=== PATIENT | male | born 1975 | race Caucasian/White ===

== ENCOUNTER 2020-12-17 08:07 | Outpatient (CLI) | payer OTHER, SELFPAY ==
--- NOTE | ~2020-12-17 | XR_ITS ---
EXAMINATION: XR barium swallow modified EXAM DATE: 12/17/2020 09:16 INDICATION: R13.10 - Dysphagia, unspecified TECHNIQUE: Modified barium esophagram was performed by speech pathologist with radiologist Dr. Inder Ward present to administered fluoroscopy. Speech pathologist administered barium in varying consis tencies as per speech pathologist documentation. This was recorded on tape. There was total fluorosc opic time of 0.8 minutes. The DAP for this procedure was 0.6 Gycm2. A total of 1 images sent to PAC S from the exam. FINDINGS: Oral stage: Adequate function. Pharyngeal phase: Adequate function. Laryngeal sensitivity: Present. IMPRESSION: Oral feedings recommended as per speech pathologist. Reviewed, dictated and finalized at location A.
--- NOTE | 2020-12-17 16:51 | STOPEVAL ---
MODIFIED BARIUM SWALLOW EVALUATION: Thank you for referring Boogie Ndiaye to [facility].? Attending Provider: Vic Carranza PA-C/Dr Gulshan ARREGUIN [phone] Modified Barium Swallow Evaluation Recent Swallowing History Reports Dysphagia Yes: meat & sometimes other foods get stuck Onset of Dysphagia about a year ago History of Dysphagia No Other Related History pt denied any significant medical history Other Factors Impacting Dysphagia None History of Pneumonia No Reported Difficult Consistencies Solids Intake Method Prior to Swallow Oral Evaluation Diet Prior to Swallow Evaluation Regular, Level 7 Liquid Consistency Prior to Swallow Thin (0) Evaluation Consistency Solid Consistency Method of Presentation Spoon Oral Preparatory Symptoms None Oral Phase Symptoms None Pharyngeal Phase Symptoms None Severity of Vallecular Residue None - 0% No Residue Severity of Pyriform Sinus Residue None - 0% No Residue 8 Point Laryngeal Penetration-Aspiration Material Does Not Enter Airway Scale Cervical/Esophageal Symptoms None Mixed Consistency Method of Presentation Spoon Oral Preparatory Symptoms None Oral Phase Symptoms None Pharyngeal Phase Symptoms None Severity of Vallecular Residue None - 0% No Residue Severity of Pyriform Sinus Residue None - 0% No Residue 8 Point Laryngeal Penetration-Aspiration Material Does Not Enter Airway Scale Cervical/Esophageal Symptoms None Pureed Consistency Method of Presentation Spoon Oral Preparatory Symptoms None Oral Phase Symptoms None Pharyngeal Phase Symptoms None Severity of Vallecular Residue None - 0% No Residue Severity of Pyriform Sinus Residue None - 0% No Residue 8 Point Laryngeal Penetration-Aspiration Material Does Not Enter Airway Scale Cervical/Esophageal Symptoms None Thin Uncontrolled 2 Method of Presentation Straw Oral Preparatory Symptoms None Oral Phase Symptoms None Pharyngeal Phase Symptoms None Severity of Vallecular Residue None - 0% No Residue Severity of Pyriform Sinus Residue None - 0% No Residue 8 Point Laryngeal Penetration-Aspiration Material Does Not Enter Airway Scale Cervical/Esophageal Symptoms None Thin Uncontrolled 1 Method of Presentation Cup Oral Preparatory Symptoms None Oral Phase Symptoms None Pharyngeal Phase Symptoms None Severity of Vallecular Residue None - 0% No Residue Severity of Pyriform Sinus Residue None - 0% No Residue 8 Point Laryngeal Penetration-Aspiration Material Does Not Enter Airway Scale Cervical/Esophageal Symptoms No
== END 2020-12-17 08:08 | disposition home or self-care (01) ==
PROVIDERS: PCP Physician Assistant; Visit Provider Physician Assistant
DX: R13.10 Dysphagia, unspecified (principal)
CPT/HCPCS: 92611

== ENCOUNTER 2020-12-31 09:15 | Outpatient (CLI) | payer OTHER, SELFPAY | END 2020-12-31 09:16 | disposition home or self-care (01) | LOC: ANHAUDIO 09:17 | PROVIDERS: PCP Physician Assistant; Visit Provider Physician Assistant | DX: H90.3 Sensorineural hearing loss, bilateral (principal) | CPT/HCPCS: 92557; 92567 ==

== ENCOUNTER 2021-11-11 08:01 | Emergency (ER) | payer OTHER, SELFPAY ==
--- NOTE | ~2021-11-11 | XR_ITS ---
EXAMINATION: XR ribs RT 2V w CXR 2V INDICATION: Chest pain TECHNIQUE: PA and lateral views of the chest and 3 views of the left ribs were obtained. COMPARISON: 09/17/2015 FINDINGS: The lungs are free of acute opacities. No pleural effusion or pneumothorax. The cardiomedia stinal silhouette is normal. The visualized bones and soft tissues are unremarkable. No displaced ri b fracture is identified. IMPRESSION: 1. No acute cardiopulmonary abnormality or evidence of displaced rib fracture. Reviewed, dictated and finalized at location A.
[2021-11-11 08:11] VITALS: BP 140/104; PULSE 73; RESP 14; O2SAT 99
[2021-11-11] MEDS: HYDROcodone/acetaminophen (*CRX) 5-325 MG TABLET 1 TAB PO (08:26)
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
== END 2021-11-11 09:50 | disposition home or self-care (01) ==
PROVIDERS: Emergency Provider Emergency Medicine; PCP Physician Assistant
DX: R07.89 Other chest pain (principal); F17.210 Nicotine dependence, cigarettes, uncomplicated
CPT/HCPCS: 71046; 71100; 99283; A9270

== ENCOUNTER 2022-09-03 12:37 | Outpatient (CLI) | payer BC, SELFPAY ==
--- NOTE | ~2022-09-03 | CT_ITS ---
EXAMINATION: CT chest abdomen pelvis w con DATE: 09/03/2022 13:05 INDICATION: Abnormal weight loss TECHNIQUE: Computed tomography (CT) of the chest, abdomen, and pelvis was performed with 100 CC Omnip aque 350 intravenous contrast. Automated exposure control and iterative reconstruction technique were employed. Exam dose: 509.04 mGy-cm total exam DLP. COMPARISON: 11/11/2021 PA and lateral chest FINDINGS: CHEST CT: Normal heart size. No pericardial or pleural effusion. Normal size and homogeneous enhancement of the thyroid gland. No hilar or mediastinal mass lesion or lymphadenopathy. No thoracic aortic aneurysm or dissection. Mild to moderate sliding hiatal hernia. Mild bilateral gynecomastia. ABDOMEN/PELVIS CT: The liver, gallbladder, bile ducts, pancreas, pancreatic duct and spleen appear normal. No renal mass lesion or scarring or urinary tract calculus or hydroureteronephrosis is detected. The urinary bladder and prostate gland are unremarkable. Normal caliber of the abdominal aorta. No intraperitoneal or retroperitoneal or pelvic mass lesion or adenopathy or ascites. No bowel obstruction, bowel wall thickening, pneumatosis or intraperitoneal free air is detected. Nor mal appendix. There is some nonspecific fluid-containing small bowel segments with air-fluid levels. Severe degenerative disease at L5-S1. Moderate degenerative disease and mild retrolisthesis at L3-4. Moderate degenerative disease at L2-3, L4-5. T12 limbus vertebra or old anterior inferior T12 vertebral body fracture deformity. IMPRESSION: Nonspecific nondilated fluid containing small bowel with air-fluid levels which may be d ue to enteritis or mild adynamic ileus Mild to moderate sliding hiatal hernia Normal appendix Reviewed, dictated and finalized at Location A. Reviewed, dictated and finalized at location L. IMPRESSION: Nonspecific nondilated fluid containing small bowel with air-fluid levels which may be due to enteritis or mild adynamic ileus Mild to moderate sliding hiatal hernia Normal appendix
== END 2022-09-03 12:38 | disposition home or self-care (01) ==
PROVIDERS: PCP Physician Assistant; Visit Provider Physician Assistant
DX: R63.4 Abnormal weight loss (principal); K44.9 Diaphragmatic hernia without obstruction or gangrene
CPT/HCPCS: 71260; 74177; Q9967

== ENCOUNTER 2022-09-25 01:39 | Day surgery (SDC) | payer BC, SELFPAY ==
[2022-09-16 12:12] VITALS: BMI 19.6
[2022-09-25 07:55] VITALS: BP 129/95; PULSE 77; RESP 18; TEMP 36.6; O2SAT 99
[2022-09-25] MEDS: LACTATED RINGERS 1,000 ML 150 ML IV CONT (07:57)
--- NOTE | 2022-09-25 08:38 | PM.HPGS ---
History of Present Illness History of Present Illness Consent: Risks, benefits, and alternatives have been discussed and questions answered. Patient agrees to proceed with procedure. Chief complaint: dysphagia, neoplasm screening Narrative: Boogie Ndiaye is a 47 year old male with weight loss, smoker, also noted that sometimes food will get stuck in upper chest never had scopes CT scan no major findings. Review of Systems Constitutional: Constitutional: Denies headache(s) and Denies weakness Eyes: Eyes: Denies blurry vision ENT: Reports Normal hearing present, Denies headache(s) and Denies neck pain Cardiovascular: Cardiovascular: Denies chest pain and Denies dyspnea Respiratory: Respiratory: Denies dyspnea Gastrointestinal: Gastrointestinal: Reports no additional gastrointestinal complaints Genitourinary: Genitourinary: Denies dysuria Musculoskeletal: Musculoskeletal: Denies neck pain Integumentary/Breasts: Skin/Breast: Denies dry skin Neurologic: Reports Normal hearing present, Denies headache(s) and Denies weakness Psychiatric: Psychiatric: Denies anxiety Endocrine: Endocrine: Denies change in body appearance Hematologic/Lymphatic: Hematologic/Lymphatic: Denies easy bleeding Allergic/Immunologic: Allergic/Immunologic: Denies urticaria PMF Past Medical History Medical History (Updated 09/25/22 @ 08:39 by James Krause MD) Dysphagia Healthy adult male Surgical History Surgical History Hx of tonsillectomy Family History Family History Father Patient's father is in good health Mother Family history of malignant neoplasm of uterus Patient's mother is Social History Social History Smoking packs per day: 2 Smoking cigarettes per day: 40.0 Years smoked: 20 Smoking pack-years: 40.00 Smoking status: Current every day smoker Tobacco type: cigarettes Second hand tobacco smoke exposure: No Alcohol intake: current Drinks per week: 45 Alcohol use details: BEER Substance use: current Substance use type: marijuana Lack of Transportation: No Lack of Food: Never True Current Housing: I Have Housing Concerned About Future Housing: No Difficulty Paying Gas/Electric Bills: No Difficulty Paying for Meds: No Currently Unemployed: No Education: High School Diploma/GED Difficulty w/ Childcare or Family Care: No Living arrangements: with family Spiritual care concerns: No Meds Home Medications and Allergies Home Medications Medication Instructions Recorded Confirmed Type citalopram 40 mg tablet 40 mg PO DAILY 09/25/22 09/25/22 History Allergies Allergy/AdvReac Type Severity Reaction Status Date / Time No Known Allergies Allergy Verified 09/25/22 07:54 Vital Signs Vital Signs - 24 hr 09/25/22 07:55 Temperature 97.8 F Pulse Rate 77 Respiratory Rate 18 Blood Pressure 129/95 H Pulse Oximetry 99 Oxygen Delivery Room Air Exam Const: General: comfortable and no acute distress HENMT: Face/Nose/Sinus: Normal nares present Eyes: General: appearance normal, both eyes and all related structures Neck: Neck: no JVD Resp: Auscultation: clear to auscultation bilaterally Cardio: Rate: regular rate Rhythm: regular rhythm GI: Inspection: non-distended GI Palp: Yes Soft to palpation Skin: General skin exam: normal color Neuro: General: gait normal Speech: normal speech Extrem: General: normal to inspection Psych: Mental Status: mental status grossly normal Assessment and Plan Assessment and plan (1) Unintentional weight loss: Code(s): R63.4 - Abnormal weight loss Status: Acute Assessment and Plan: egd and colonoscopy CT scan no major findings (2) Dysphagia: Code(s): R13.10 - Dysphag
--- NOTE | 2022-09-25 08:39 | WPDANESEPPF ---
Anes - Initial Pre Proc Eval Procedure: Operation Date: 09/25/22 09:15 Proposed Procedures p Esophagogastroduodenoscopy & Screening Colonoscopy - James Krause MD Date/Time: 09/25/22 08:39 Surgeon: James Krause MD Pre Op Diagnosis: dysphagia, neoplasm screening Patient Data Age: 47 Gender: M Height: 1.8 m Weight: 71.9 kg Last Vital Signs Temp 97.8 F 09/25/22 07:55 Pulse 77 09/25/22 07:55 Resp 18 09/25/22 07:55 BP 129/95 H 09/25/22 07:55 Pulse Ox 99 09/25/22 07:55 O2 Del Method Room Air 09/25/22 07:55 Allergies Allergy/AdvReac Type Severity Reaction Status Date / Time No Known Allergies Allergy Verified 09/25/22 07:54 Home Medications Medication Instructions Recorded Confirmed Type citalopram 40 mg tablet 40 mg PO DAILY 09/25/22 09/25/22 History Patient hx anesthesia problems: none Family hx anesthesia problems: none Results Review: All pre-operative results and documents have been reviewed as part of the pre-operative evaluation. [facility] Past Medical History Medical History Healthy adult male Surgical History Surgical History Hx of tonsillectomy Family History Family History Father Patient's father is in good health Mother Family history of malignant neoplasm of uterus Patient's mother is Social History Social History Smoking packs per day: 2 Smoking cigarettes per day: 40.0 Years smoked: 20 Smoking pack-years: 40.00 Smoking status: Current every day smoker Tobacco type: cigarettes Second hand tobacco smoke exposure: No Alcohol intake: current Drinks per week: 45 Alcohol use details: BEER Substance use: current Substance use type: marijuana Lack of Transportation: No Lack of Food: Never True Current Housing: I Have Housing Concerned About Future Housing: No Difficulty Paying Gas/Electric Bills: No Difficulty Paying for Meds: No Currently Unemployed: No Education: High School Diploma/GED Difficulty w/ Childcare or Family Care: No Living arrangements: with family Spiritual care concerns: No Anes - Eval Final PreProcedure Day of Procedure 09/25/22 08:39 Patient weight: normal Heart: regular rate and rhythm Lungs: clear to auscultation Airway: Mallampati scale class II Neurological: alert and oriented Last oral intake: >/= 8 hours ASA classification: II Emergent: no Anesthetic plan: proceed Anesthesia type and monitoring: general GIVS and standard monitoring Results Review: All pre-operative results and documents have been reviewed as part of the pre-operative evaluation. Informed Consent: The patient's anesthetic plan and its attendant risks and benefits were discussed with the patient/family/POA. Questions were solicited and answers provided to the satisfaction of the patient/family/POA.
--- NOTE | 2022-09-25 08:59 | SUR.OPER ---
EGD ended at 852. Colonoscopy began 857.
[2022-09-25 09:13] VITALS: BP 104/67; PULSE 54; RESP 15; O2SAT 99
[2022-09-25 09:23] VITALS: BP 112/69; PULSE 65; RESP 19; O2SAT 100
[2022-09-25 09:33] VITALS: BP 125/67; PULSE 62; RESP 20; O2SAT 100
== END 2022-09-25 09:37 | disposition home or self-care (01) ==
PROVIDERS: PCP Physician Assistant; Visit Provider Internal Medicine Gastroenterology
PROC: 0DJ08ZZ Inspection of Upper Intestinal Tract, Via Natural or Artificial Opening Endoscopic (ICD-10-PCS; CPT 43235; principal; 2022-09-25 09:15)
DX: Z12.11 Encounter for screening for malignant neoplasm of colon (principal); K64.8 Other hemorrhoids; R63.4 Abnormal weight loss; K22.2 Esophageal obstruction; K44.9 Diaphragmatic hernia without obstruction or gangrene; K29.70 Gastritis, unspecified, without bleeding; F17.210 Nicotine dependence, cigarettes, uncomplicated
CPT/HCPCS: 45378; 43239; 43249; 88305; C1726; J2405; J2704; J3010; J7120